=== PATIENT | male | born 2000 | race African-American/Black ===

== ENCOUNTER 2019-09-29 16:29 | Emergency (ER) | payer OTHER ==
[~2019-09-29] VITALS: Ht 180.3 cm; Wt 58.1 kg
[2019-09-29 16:47] VITALS: Ht 180.3 cm; Wt 58.1 kg
[2019-09-29 18:45] VITALS: BP 111/48
== END 2019-09-29 20:49 | disposition home or self-care (01) ==
LOC: ED 16:29
DX: G40.909 Epilepsy, unspecified, not intractable, without status epilepticus (principal)